=== PATIENT | male | born 1990 | race Caucasian/White ===

== ENCOUNTER 2018-10-11 11:23 | Emergency (ER) | payer SELFPAY ==
[2018-10-11] MEDS: CEFTRIAXONE 2 GM/50 ML (PMX) 50 ML IVPB (12:30)
[2018-10-11] MEDS: DEXAMETHASONE 10 MG/ML 1 ML INJ IV (12:38)
[2018-10-11] MEDS: KETOROLAC 15 MG INJ IV (12:39)
[2018-10-11] MEDS: SOD CHLORIDE 0.9% 500 ML IV (12:39)
[2018-10-11] MEDS: VANCOMYCIN 1 GM (PMX) 250 ML IVPB (12:39)
== END 2018-10-11 15:01 | disposition home or self-care (01) ==
LOC: FTE 11:23
DX: L03.116 Cellulitis of left lower limb (principal)
CPT/HCPCS: 96365; 96366; 96368; 96375; 99284-25

== ENCOUNTER 2018-10-12 08:45 | Emergency (ER) | payer MEDICAID ==
[2018-10-12] MEDS: CEFTRIAXONE 1 GM/50 ML (PMX) 50 ML IVPB (09:43)
== END 2018-10-12 10:53 | disposition home or self-care (01) ==
LOC: FTE 10:53
DX: L03.116 Cellulitis of left lower limb (principal)
CPT/HCPCS: 96365; 99284-25

== ENCOUNTER 2018-10-15 11:44 | Inpatient (IN) | payer MEDICAID ==
[2018-10-15 12:52] LABS: ADD MAN DIFF? NO
[2018-10-15] MEDS: IBUPROFEN 600 MG TAB PO (13:01)
[2018-10-15 13:02] LABS: WHITE BLOOD COUNT 11.3 10^3/ul (4.8-10.8)
[2018-10-15 13:02] LABS: BASOPHIL # 0.1 10^3/ul (0.0-0.1); BASOPHILS % 0.8 % (0.0-2.0); EOSINOPHILS # 0.2 10^3/ul (0.0-0.5); EOSINOPHILS % 2.1 % (0.0-7.0); HEMATOCRIT 41.1 % (42.0-52.0); HEMOGLOBIN 13.5 g/dl (14.0-18.0); LYMPHOCYTES # 3.4 10^3/ul (0.8-2.9); LYMPHOCYTES % 30.6 % (15.0-51.0); MEAN CORPUSCULAR HEMOGLOBIN 27.8 pg (29.0-33.0); MEAN CORPUSCULAR HGB CONC 32.8 g/dl (32.0-37.0); MEAN CORPUSCULAR VOLUME 84.6 fl (82.0-101.0); MEAN PLATELET VOLUME 10.6 fl (7.4-10.4); MONOCYTE # 0.7 10^3/ul (0.3-0.9); MONOCYTES % 5.9 % (0.0-11.0); NEUTROPHIL # 6.5 10^3/ul (1.6-7.5); NEUTROPHILS % 57.9 % (39.0-77.0); PLATELET COUNT 316 10^3/UL (140-415); RED BLOOD COUNT 4.86 10^6/ul (4.70-6.10); RED CELL DISTRIBUTION WIDTH 14.1 % (11.5-14.5)
[2018-10-15] MEDS: CLINDAMYCIN 900 MG/D5W (PMX) 50 ML IVPB (13:02)
[2018-10-15] MEDS: SOD CHLORIDE 0.9% 1,000 ML IV (13:02)
[2018-10-15 13:27] LABS: ALANINE AMINOTRANSFERASE 85 IU/L (13-69); ALBUMIN 4.3 g/dl (3.3-4.9); ALBUMIN/GLOBULIN RATIO 0.89; ALKALINE PHOSPHATASE 141 IU/L (42-121); ANION GAP 8 (5-13); ASPARTATE AMINO TRANSFERASE 49 IU/L (15-46); BILIRUBIN,INDIRECT 0.3 mg/dl (0-1.1); BILIRUBIN,TOTAL 0.3 mg/dl (0.2-1.3); BLOOD UREA NITROGEN 15 mg/dl (7-20); C-REACTIVE PROTEIN 1.7 mg/dl (0.0-0.9); CALCIUM 9.3 mg/dl (8.4-10.2); CARBON DIOXIDE 24 mmol/L (21-31); CHLORIDE 108 mmol/L (97-110); CREATININE 0.77 mg/dl (0.61-1.24); Estimated GFR > 60 mL/min (>60); GLUCOSE 97 mg/dl (70-220); LIPASE 55 U/L (23-300); POTASSIUM 4.3 mmol/L (3.5-5.1); SODIUM 140 mmol/L (135-144); TOTAL PROTEIN 9.1 g/dl (6.1-8.1)
[2018-10-15 14:55] LABS: ERYTHROCYTE SEDIMENTATION RATE 44 mm/Hr (0-15)
[2018-10-15] MEDS ORDERED: morphine 2 MG INJ IV (17:00)
[2018-10-15] MEDS ORDERED: ONDANSETRON 4 MG INJ IV (17:00)
[2018-10-15] MEDS ORDERED: ZOLPIDEM 5 MG TAB PO (17:00)
[2018-10-15] MEDS ORDERED: ACETAMINOPHEN 325 MG TAB PO (17:00)
[2018-10-15] MEDS ORDERED: NACL 0.9% 3 ML SYG IV (17:00)
[2018-10-15] MEDS: CEFEPIME 2GM/50 ML (PMX) 50 ML IVPB (21:39)
[2018-10-16 05:44] LABS: ADD MAN DIFF? NO
[2018-10-16 05:48] LABS: WHITE BLOOD COUNT 10.4 10^3/ul (4.8-10.8)
[2018-10-16 05:48] LABS: BASOPHIL # 0.1 10^3/ul (0.0-0.1); BASOPHILS % 0.7 % (0.0-2.0); EOSINOPHILS # 0.3 10^3/ul (0.0-0.5); EOSINOPHILS % 2.7 % (0.0-7.0); HEMATOCRIT 40.9 % (42.0-52.0); HEMOGLOBIN 13.2 g/dl (14.0-18.0); LYMPHOCYTES # 3.1 10^3/ul (0.8-2.9); LYMPHOCYTES % 29.5 % (15.0-51.0); MEAN CORPUSCULAR HEMOGLOBIN 27.2 pg (29.0-33.0); MEAN CORPUSCULAR HGB CONC 32.3 g/dl (32.0-37.0); MEAN CORPUSCULAR VOLUME 84.3 fl (82.0-101.0); MEAN PLATELET VOLUME 10.3 fl (7.4-10.4); MONOCYTE # 0.7 10^3/ul (0.3-0.9); MONOCYTES % 6.8 % (0.0-11.0); NEUTROPHIL # 5.8 10^3/ul (1.6-7.5); NEUTROPHILS % 56.3 % (39.0-77.0); PLATELET COUNT 288 10^3/UL (140-415); RED BLOOD COUNT 4.85 10^6/ul (4.70-6.10); RED CELL DISTRIBUTION WIDTH 14.3 % (11.5-14.5)
[2018-10-16 06:10] LABS: ALANINE AMINOTRANSFERASE 83 IU/L (13-69); ALBUMIN 3.8 g/dl (3.3-4.9); ALBUMIN/GLOBULIN RATIO 0.97; ALKALINE PHOSPHATASE 112 IU/L (42-121); ANION GAP 9 (5-13); ASPARTATE AMINO TRANSFERASE 41 IU/L (15-46); BILIRUBIN,INDIRECT 0.1 mg/dl (0-1.1); BILIRUBIN,TOTAL 0.1 mg/dl (0.2-1.3); BLOOD UREA NITROGEN 18 mg/dl (7-20); CARBON DIOXIDE 22 mmol/L (21-31); CHLORIDE 107 mmol/L (97-110); CREATININE 0.86 mg/dl (0.61-1.24); Estimated GFR > 60 mL/min (>60); GLUCOSE 102 mg/dl (70-220); MAGNESIUM 1.9 mg/dl (1.7-2.5); PHOSPHORUS 3.6 mg/dl (2.5-4.9); POTASSIUM 4.7 mmol/L (3.5-5.1); SODIUM 138 mmol/L (135-144); TOTAL PROTEIN 7.7 g/dl (6.1-8.1)
[2018-10-16 06:32] LABS: HEMOGLOBIN A1C 5.2 % (0-5.9)
[2018-10-16 06:46] LABS: HIV 1&2 ANTIBODY NEGATIVE (NEGATIVE)
[2018-10-16] MEDS: HYDROCODONE/APAP (5/325) TAB PO ×3 (08:33→21:35)
[2018-10-16] MEDS: CEFEPIME 2GM/50 ML (PMX) 50 ML IVPB (08:34)
[2018-10-16] MEDS: CEFAZOLIN 1 GM/50 ML (PMX) 50 ML IVPB ×2 (15:13→21:36)
[2018-10-16] MEDS: DOXYCYCLINE 100 MG in SOD CHLORIDE 0.9% 250 ML IVPB (20:32)
[2018-10-17] MEDS: CEFAZOLIN 1 GM/50 ML (PMX) 50 ML IVPB ×2 (06:02→14:00)
[2018-10-17 06:12] LABS: ADD MAN DIFF? NO; HAAIG REFLEX REFLEX FILED
[2018-10-17 06:18] LABS: BASOPHIL # 0.1 10^3/ul (0.0-0.1); BASOPHILS % 0.8 % (0.0-2.0); EOSINOPHILS # 0.3 10^3/ul (0.0-0.5); EOSINOPHILS % 3.3 % (0.0-7.0); HEMATOCRIT 41.6 % (42.0-52.0); HEMOGLOBIN 13.5 g/dl (14.0-18.0); LYMPHOCYTES # 3.8 10^3/ul (0.8-2.9); LYMPHOCYTES % 37.1 % (15.0-51.0); MEAN CORPUSCULAR HEMOGLOBIN 27.5 pg (29.0-33.0); MEAN CORPUSCULAR HGB CONC 32.5 g/dl (32.0-37.0); MEAN CORPUSCULAR VOLUME 84.7 fl (82.0-101.0); MEAN PLATELET VOLUME 10.5 fl (7.4-10.4); MONOCYTE # 0.8 10^3/ul (0.3-0.9); NEUTROPHILS % 47.9 % (39.0-77.0); PLATELET COUNT 271 10^3/UL (140-415); RED BLOOD COUNT 4.91 10^6/ul (4.70-6.10); RED CELL DISTRIBUTION WIDTH 14.3 % (11.5-14.5)
[2018-10-17 06:18] LABS: WHITE BLOOD COUNT 10.4 10^3/ul (4.8-10.8)
[2018-10-17 06:39] LABS: ALANINE AMINOTRANSFERASE 68 IU/L (13-69); ALBUMIN 3.9 g/dl (3.3-4.9); ALKALINE PHOSPHATASE 117 IU/L (42-121); ANION GAP 7 (5-13); ASPARTATE AMINO TRANSFERASE 38 IU/L (15-46); BILIRUBIN,INDIRECT 0.3 mg/dl (0-1.1); BILIRUBIN,TOTAL 0.3 mg/dl (0.2-1.3); BLOOD UREA NITROGEN 16 mg/dl (7-20); CALCIUM 9.1 mg/dl (8.4-10.2); CARBON DIOXIDE 25 mmol/L (21-31); CHLORIDE 106 mmol/L (97-110); CREATININE 0.76 mg/dl (0.61-1.24); Estimated GFR > 60 mL/min (>60); GLUCOSE 100 mg/dl (70-220); POTASSIUM 4.1 mmol/L (3.5-5.1); SODIUM 138 mmol/L (135-144); TOTAL PROTEIN 8.2 g/dl (6.1-8.1)
[2018-10-17 06:42] LABS: MAGNESIUM 2.1 mg/dl (1.7-2.5)
[2018-10-17 07:06] LABS: HEPATITIS B SURFACE ANTIGEN NEGATIVE (NEGATIVE)
[2018-10-17 07:24] LABS: HEPATITIS B CORE ANTIBODY NEGATIVE (NEGATIVE); HEPATITIS C VIRAL ANTIBODY NEGATIVE (NEGATIVE)
[2018-10-17] MEDS: DOXYCYCLINE 100 MG in SOD CHLORIDE 0.9% 250 ML IVPB (09:03)
== END 2018-10-17 15:27 | disposition home or self-care (01) | DRG 603 ==
LOC: FTE 11:44 → 2NE 12:39
DX: L03.116 Cellulitis of left lower limb (principal); R74.0 Nonspecific elevation of levels of transaminase and lactic acid dehydrogenase [LDH]
CPT/HCPCS: 36415; 73590; 76705; 80053; 83036; 83690; 83735; 84100; 85025; 85651; 86140; 86703; 86704; 86709; 86803; 87040-91; 87340; 93971; 99285-25